=== PATIENT | male | born 1980 | race African-American/Black ===

== ENCOUNTER 2020-10-26 10:20 | Emergency (ER) | payer MEDICAID ==
[~2020-10-26] VITALS: Ht 185.4 cm; Wt 95.3 kg
[2020-10-26 10:38] VITALS: BP 173/110
[2020-10-26] MEDS ORDERED: ULTRAM 50MG TAB50 MG PO (11:26)
[2020-10-26] MEDS ORDERED: SULFACETAMIDE 115 M1 RT. EYE (11:26)
== END 2020-10-26 11:40 | disposition home or self-care (01) ==
LOC: ER 10:20
DX: S05.01XA Injury of conjunctiva and corneal abrasion without foreign body, right eye, initial encounter (principal); Z88.6 Allergy status to analgesic agent; Z94.0 Kidney transplant status; X58.XXXA Exposure to other specified factors, initial encounter; Y93.89 Activity, other specified; Y92.89 Other specified places as the place of occurrence of the external cause; Y99.9 Unspecified external cause status